=== PATIENT | female | born 1990 | race African-American/Black ===

== ENCOUNTER 2021-02-05 19:32 | Emergency (ER) | payer MEDICAID ==
[~2021-02-05] VITALS: Ht 160 cm; Wt 116.0 kg
[2021-02-05 20:55] LABS: CLARITY URINE CLEAR (CLEAR); COLOR URINE YELLOW (YELLOW); KETONES URINE NEGATIVE (NEGATIVE); LEUKOCYTE ESTERASE URINE NEGATIVE (NEGATIVE); NITRITE URINE NEGATIVE (NEGATIVE); OCCULT BLOOD URINE NEGATIVE (NEGATIVE); PROTEIN URINE NEGATIVE (NEGATIVE); SPECIFIC GRAVITY URINE 1.015 (1.005-1.030)
[2021-02-06] MEDS ORDERED: DIF15 MT (00:41)
[2021-02-06] MEDS ORDERED: NYST15CR2 TP (00:41)
[2021-02-06 00:50] VITALS: BP 129/74
== END 2021-02-06 00:52 | disposition home or self-care (01) ==
LOC: ER 19:32
DX: N76.0 Acute vaginitis (principal); R21 Rash and other nonspecific skin eruption; R03.0 Elevated blood-pressure reading, without diagnosis of hypertension; Z88.0 Allergy status to penicillin
CPT/HCPCS: 81003; 81025; 87210; 99283